=== PATIENT | male | born 1970 ===

== ENCOUNTER → 2024-11-06 12:54 | Outpatient (BNVA) | payer OTHER, SELFPAY | PROVIDERS: Visit Provider Nurse Practitioner Family | DX: L91.8 Other hypertrophic disorders of the skin (principal); L82.1 Other seborrheic keratosis; L81.4 Other melanin hyperpigmentation; L57.8 Other skin changes due to chronic exposure to nonionizing radiation; D22.4 Melanocytic nevi of scalp and neck; D48.5 Neoplasm of uncertain behavior of skin | CPT/HCPCS: 11102; 99203 ==